=== PATIENT | male | born 1950 | race Caucasian/White ===

== ENCOUNTER 2023-02-23 07:57 | Outpatient (CLI) | payer OTHER, MEDICARE, SELFPAY ==
--- NOTE | 2023-02-23 07:15 | DI.RAD_ITS ---
Exam(s) XR PAIN CLINIC LUMBAR SP 2V EXAM: XR PAIN CLINIC LUMBAR SP 2V CLINICAL HISTORY: Dx: Lumbar Radiculopathy. TECHNIQUE: Fluoroscopy was provided for the referring physician for guidance with performing pain cl inic injection procedure. COMPARISON: No exams were available for comparison FINDINGS: Please see procedure note for details. Fluoro time: 12.3 seconds RADIATION DOSE DELIVERED: Kar=2.89 mGy
[2023-02-23 08:10] VITALS: BP 153/84; PULSE 59; RESP 20; TEMP 36.4; O2SAT 97
[2023-02-23 08:40] VITALS: BP 165/83; PULSE 66; RESP 19; O2SAT 96
--- NOTE | 2023-02-23 08:44 | PDOC.PAIN_ITS ---
Date of service: 02/23/23 Time of Service: 08:44 Pain Managment Procedure Note Procedure Note Procedure Note: PROCEDURE NOTE LUMBAR EPIDURAL STEROID INJECTION Date of Service: February 23, 2023 Patient:Timothy Casillas? Provider: Gil Rouse DO, MPH Timothy Ortiz has been referred to the [facility] for a lumbar epidural steroid injection. Pre-operative diagnosis: Lumbosacral Radiculopathy Post-operative diagnosis: Same Pre-Procedure Pain: VAS= 7/10 Comments: I previously evaluated him in our clinic. His symptoms have not changed. Timothy was interviewed and the medical record was reviewed.? There were no medical, pharmacologic, radiographic or other structural contraindications to attempting fluoroscopically guided Lumbar epidural steroid injection.? Risks, potential side effects, indications, and potential benefits of the procedure were reviewed with Timothy.? Questions and concerns were addressed.? After it was clear that Timothy was fully informed about the procedure, the printed consent form was signed by the patient and myself.? Timothy was placed in the prone position on the fluoroscopy table and automated blood pressure cuff and pulse oximeter applied. The skin entry point for entering/approaching the epidural space for the lumbar epidural steroid injection was marked. Following thorough chlorhexadine preparation of the skin and draping and 1% lidocaine infiltration of the skin entry point and subcutaneous tissues, an 18 gauge Touhy needle was placed and advanced under fluoroscopic guidance and with loss of resistance technique into the L5-S1 epidural space. Needle tip placement and depth were aided and confirmed by fluoroscopy. There was no paresthesia or return of blood or CSF through the needle. 1 mls of Omnipaque 240 was injected with clear epidural spread confirmed with fluoroscopy. 80 mg of Depo-Medrol was? injected. This was followed by 1 ml of preservative-free normal saline to flush the steroid out of the needle. There was no unusual discomfort expressed by Timothy. The needle was withdrawn without difficulty. (49 mls of Omnipaque was wasted) Timothy was observed and was without hemodynamic, neurologic, or allergic reactions.? Fluoroscopic images were digitally archived. Timothy's vital signs were stable throughout the procedure and were as recorded in nursing records. Follow up plans and appointments were discussed with Timothy. Post procedure instruction was given as documented in nursing records and having met discharge criteria Timothy was discharged from the [facility]. COMMENTS: No apparent complications. Post-procedure pain: VAS= 4/10. Timothy to contact [facility] as needed. If at least 50% improvement in pain and/or function for at least 3 months is achieved, this procedure can be repeated. I personally performed this entire procedure. GIL ROUSE DO, MPH ABPMR-subspecialty board certification in Pain Medicine [facility]
[2023-02-23] MEDS: methylPREDNISolone ACETATE 80 MG/ML VIAL IJ (08:45)
[2023-02-23] MEDS: Omnipaque 240 MG/ML 50 ML BTL IJ (08:46)
== END 2023-02-23 07:58 | disposition home or self-care (01) ==
PROVIDERS: Visit Provider Preventive Medicine Occupational Medicine
DX: M54.17 Radiculopathy, lumbosacral region (principal)
CPT/HCPCS: 62323; 72100; J1040; Q9967

== ENCOUNTER 2023-08-06 10:29 | Outpatient (CLI) | payer OTHER, SELFPAY ==
--- NOTE | 2023-08-06 06:00 | DI.RAD_ITS ---
Exam(s) XR PAIN CLINIC LUMBAR SP 2V EXAM: XR PAIN CLINIC LUMBAR SP 2V CLINICAL HISTORY: DX: Lumbar Radiculopathy TECHNIQUE: 2D and realtime digital imaging was performed. CONTRAST MATERIAL: Refer to procedure report. COMPARISON: No exams were available for comparison FINDINGS: Fluoroscopy was provided for Dr. Rouse during the performance of a lumbosacral pain management. Plea se refer to the procedure report for complete details. Ka,r=4.1 mGy IMPRESSION:
[2023-08-06 11:00] VITALS: BP 138/86; PULSE 64; RESP 16; TEMP 36.8; O2SAT 94
[2023-08-06 11:27] VITALS: BP 153/95; PULSE 63; RESP 12; O2SAT 96
[2023-08-06] MEDS: Omnipaque 240 MG/ML 50 ML BTL IJ (11:28)
[2023-08-06] MEDS: Epidural Tray 1 EACH MC (11:29)
[2023-08-06] MEDS: methylPREDNISolone ACETATE 80 MG/ML VIAL IJ (11:29)
--- NOTE | 2023-08-06 12:16 | PDOC.PAIN ---
Date of service: 08/06/23 Time of Service: 12:16 Pain Managment Procedure Note Procedure Note Procedure Note: PROCEDURE NOTE LUMBAR EPIDURAL STEROID INJECTION Date of Service: August 06, 2023 Patient:?Timothy Ortiz? Provider: Gil Rouse DO, MPH Timothy Ortiz has been referred to the [facility] for a lumbar epidural steroid injection. Pre-operative diagnosis: Lumbosacral Radiculopathy Post-operative diagnosis: Same Pre-Procedure Pain: VAS= 5/10 Comments: He acheived >50% pain relief for >3 months with the last LESI. He was also much more active with family and friends. Timothy was interviewed and the medical record was reviewed.? There were no medical, pharmacologic, radiographic or other structural contraindications to attempting fluoroscopically guided Lumbar epidural steroid injection.? Risks, potential side effects, indications, and potential benefits of the procedure were reviewed with Timothy.? Questions and concerns were addressed.? After it was clear that Timothy was fully informed about the procedure, the printed consent form was signed by the patient and myself.? Timothy was placed in the prone position on the fluoroscopy table and automated blood pressure cuff and pulse oximeter applied. The skin entry point for entering/approaching the epidural space for the lumbar epidural steroid injection was marked. Following thorough chlorhexadine preparation of the skin and draping and 1% lidocaine infiltration of the skin entry point and subcutaneous tissues, an 18 gauge Touhy needle was placed and advanced under fluoroscopic guidance and with loss of resistance technique into the L5-S1 epidural space. Needle tip placement and depth were aided and confirmed by fluoroscopy. There was no paresthesia or return of blood or CSF through the needle. 1 mls of Omnipaque 240 was injected with clear epidural spread confirmed with fluoroscopy. 80 mg of Depo-Medrol was? injected. This was followed by 1 ml of preservative-free normal saline to flush the steroid out of the needle. There was no unusual discomfort expressed by Timothy. The needle was withdrawn without difficulty. (49 mls of Omnipaque was wasted) Timothy was observed and was without hemodynamic, neurologic, or allergic reactions.? Fluoroscopic images were digitally archived. Timothy's vital signs were stable throughout the procedure and were as recorded in nursing records. Follow up plans and appointments were discussed with Timothy. Post procedure instruction was given as documented in nursing records and having met discharge criteria Timothy was discharged from the [facility]. COMMENTS: No apparent complications. Post-procedure pain: VAS= 5/10. Timothy to contact [facility] as needed. If at least 50% improvement in pain and/or function for at least 3 months is achieved, this procedure can be repeated. I personally performed this entire procedure. GIL ROUSE DO, MPH ABPMR-subspecialty board certification in Pain Medicine [facility]
== END 2023-08-06 10:30 | disposition home or self-care (01) ==
LOC: PC 10:30
PROVIDERS: Visit Provider Preventive Medicine Occupational Medicine
DX: M54.17 Radiculopathy, lumbosacral region (principal)
CPT/HCPCS: 00123; 62323; 72100; J1040; Q9967

== ENCOUNTER 2024-09-08 07:49 | Outpatient (CLI) | payer OTHER, SELFPAY ==
[2024-09-08] VITALS (8 sets, daily range): BP systolic 153–196; BP diastolic 86–106; PULSE 55–61; RESP 16–23; TEMP 36.5; O2SAT 96–98
[2024-09-08] MEDS: Omnipaque 240 MG/ML 50 ML BTL IJ (09:19)
[2024-09-08] MEDS: methylPREDNISolone ACETATE 80 MG/ML VIAL IJ (09:19)
--- NOTE | 2024-09-08 09:20 | DI.RAD_ITS ---
Exam(s) XR PAIN CLINIC LUMBAR SP 2V EXAM: XR PAIN CLINIC LUMBAR SP 2V CLINICAL HISTORY: DX: Lumbar Radiculopathy. TECHNIQUE: Fluoroscopy was provided for the referring physician for guidance with performing pain cl inic injection procedure. COMPARISON: No exams were available for comparison FINDINGS: Please see procedure note for details. Fluoro time: 23.7 seconds RADIATION DOSE DELIVERED: Ka,r=8.59 mGy
--- NOTE | 2024-09-08 09:29 | PDOC.PAIN_ITS ---
Date of service: 09/08/24 Time of Service: 09:29 Pain Managment Procedure Note Procedure Note Procedure Note: PROCEDURE NOTE CAUDAL EPIDURAL STEROID INJECTION Date of Service: September 08, 2024 Patient:? Timothy Ortiz? Provider:? Gil Rouse DO, MPH Timothy Ortiz has been referred to the [facility] for caudal epidural steroid injection.? Pre-operative diagnosis: Lumbosacral Radiculopathy, ICD-10 M54.17 Post-operative diagnosis: Same Pre-Procedure Pain: VAS= 4/10. COMMENTS: He is having left L5/S1 radicular pain Kaylawas interviewed and the medical record was reviewed.? There were no medical, pharmacologic, radiographic or other structural contraindications to attempting fluoroscopically guided epidural steroid injection.? Risks and expected side effects as well as potential benefit of the procedure were reviewed with Kayla, and the patient's voiced concerns were addressed.? The printed consent form was signed.? Standard time-out procedure was performed. Kayla was placed in the prone position on the fluoroscopy table and automated blood pressure cuff and pulse oximeter applied.? The skin entry point for entering/approaching the epidural space by a caudal approach through the sacral hiatus ed identified with surgical skin marking.? Following thorough chlorhexidine preparation of the skin and draping and 1% lidocaine infiltration of the skin entry point and subcutaneous tissues, a 17 gauge Touhy needle was placed under fluoroscopic guidance? into the epidural space. Needle tip placement and depth were aided and confirmed by fluoroscopy in the lateral and AP position. There was no paresthesia or return of blood or CSF through the needle. 1 cc of Omnipaque 240 was injected with clear epidural spread confirmed with fluoroscopy. An Arrow 19G radio-opaque epidural catheter was advanced into the epidural space to the L5-S1 level and 2 cc of Omnipaque 240 was injected with clear epidural spread. 80 mg of Depo-Medrol was? injected. There was no unusual discomfort expressed by Timothy. The needle and catheter were then flushed with 1 cc of 1% Lidocaine and they were removed together without difficulty (49 cc of Omnipaque was wasted). Timothy was observed and was without hemodynamic, neurologic, or allergic reactions.? Fluoroscopic images were digitally archived. Timothy's vital signs were stable throughout the procedure and were as recorded in the docflowsheet by the nursing staff.? If given, dosages of intravenous drugs for anxiolysis and analgesia were documented in MAR. Follow up plans and appointments were discussed with Timothy.? Post procedure instruction was given as documented in nursing documentation and having met discharge criteria, Timothy was [facility] from the [facility]. ? COMMENTS: No apparent complications.? Post-procedure pain: VAS= 0/10. If the patient receives at least 50% improvement in pain and/or function for at least 3 months, this procedure can be repeated. HIS BLOOD PRESSURE WAS A BIT ELEVATED THROUGHOUT THE PROCEDURE. HE WAS ASYMPTOMATIC AND WAS ASKED TO TALK TO HIS PCP ABOUT THIS ISSUE. I personally completed the entire procedure. GIL ROUSE DO, MPH ABPM[employer]R - Subspecialty board certification in Pain Medicine [facility] Coding Conscious Sedation used for procedure: No CPT Codes: Inj Spine L/S w/Imaging - 57050 ([id number] ~G) Additional Codes: Date of Service (00985) Date of service: 09/08/24
== END 2024-09-08 07:50 | disposition home or self-care (01) ==
LOC: PC 07:49
PROVIDERS: Visit Provider Preventive Medicine Occupational Medicine
DX: M54.17 Radiculopathy, lumbosacral region (principal)
CPT/HCPCS: 62323; 72100; J1010; Q9967

== ENCOUNTER 2025-02-08 10:43 | Outpatient (CLI) | payer MEDICARE, BC, SELFPAY ==
--- NOTE | 2025-02-08 06:00 | DI.RAD_ITS ---
Exam(s) XR PAIN CLINIC LUMBAR SP 2V EXAM: XR PAIN CLINIC LUMBAR SP 2V CLINICAL HISTORY: Dx: Lumbar Radiculopathy. TECHNIQUE: Fluoroscopy was provided for the referring physician for guidance with performing pain clinic injection procedure. COMPARISON: No exams were available for comparison FINDINGS: Please see procedure note for details. Fluoro time: 18.2 seconds RADIATION DOSE DELIVERED: Ka,r=8.3 mGy
[2025-02-08 10:54] VITALS: BP 150/92; PULSE 55; RESP 18; TEMP 36.3; O2SAT 97
[2025-02-08] MEDS: Omnipaque 240 MG/ML 50 ML BTL IJ (11:32)
[2025-02-08] MEDS: Nerve Block Tray 1 EACH MC (11:32)
[2025-02-08] MEDS: methylPREDNISolone ACETATE 80 MG/ML VIAL IJ (11:33)
--- NOTE | 2025-02-08 13:33 | PDOC.PAIN_ITS ---
Date of service: 02/08/25 Time of Service: 11:00 Pain Managment Procedure Note Procedure Note Procedure Note: PROCEDURE NOTE CAUDAL EPIDURAL STEROID INJECTION Date of Service: February 08, 2025 Patient:? Timothy Ortiz? Provider:? Gil Rouse DO, MPH Timothy Ortiz has been referred to the [facility] for caudal epidural steroid injection.? Pre-operative diagnosis: Lumbosacral Radiculopathy, ICD-10 M54.17 Post-operative diagnosis: Same Pre-Procedure Pain: VAS= 3/10. COMMENTS: He last had this procedure completed in August 2024 and had >3 mon ths of >50% pain relief. Kaylawas interviewed and the medical record was reviewed.? There were no medical, pharmacologic, radiographic or other structural contraindications to attempting fluoroscopically guided epidural steroid injection.? Risks and expected side effects as well as potential benefit of the procedure were reviewed with Kayla, and the patient's voiced concerns were addressed.? The printed consent form was signed.? Standard time-out procedure was performed. Kayla was placed in the prone position on the fluoroscopy table and automated blood pressure cuff and pulse oximeter applied.? The skin entry point for entering/approaching the epidural space by a caudal approach through the sacral hiatus ed identified with surgical skin marking.? Following thorough chlorhexidine preparation of the skin and draping and 1% lidocaine infiltration of the skin entry point and subcutaneous tissues, a 17 gauge Touhy needle was placed under fluoroscopic guidance? into the epidural space. Needle tip placement and depth were aided and confirmed by fluoroscopy in the lateral and AP position. There was no paresthesia or return of blood or CSF through the needle. 1 cc of Omnipaque 240 was injected with clear epidural spread confirmed with fluoroscopy. An Arrow 19G radio-opaque epidural catheter was advanced into the epidural space to the L5-S1 level and 2 cc of Omnipaque 240 was injected with clear epidural spread. 80 mg of Depo-Medrol was? injected. There was no unusual discomfort expressed by Timothy. The needle and catheter were then flushed with 1 cc of 1% Lidocaine and they were removed together without difficulty (49 cc of Omnipaque was wasted). Timothy was observed and was without hemodynamic, neurologic, or allergic reactions.? Fluoroscopic images were digitally archived. Timothy's vital signs were stable throughout the procedure and were as recorded in the docflowsheet by the nursing staff.? If given, dosages of intravenous drugs for anxiolysis and analgesia were documented in MAR. Follow up plans and appointments were discussed with Timothy.? Post procedure instruction was given as documented in nursing documentation and having met discharge criteria, Timothy was [facility] from the [facility]. ? COMMENTS: No apparent complications.? Post-procedure pain: VAS= 0/10. If the patient receives at least 50% improvement in pain and/or function for at least 3 months, this procedure can be repeated. I personally completed the entire procedure. GIL ROUSE DO, MPH ABPM[employer]R - Subspecialty board certification in Pain Medicine [facility] Coding Conscious Sedation used for procedure: No CPT Codes: Inj Spine L/S w/Imaging - [id number] ([id number] ~G) Additional Codes: Date of Service (18626) Date of service: 02/08/25 Diagnoses: lumbar radiculitis
== END 2025-02-08 10:44 | disposition home or self-care (01) ==
LOC: PC 10:44
PROVIDERS: PCP Physician Assistant; Visit Provider Preventive Medicine Occupational Medicine
DX: M54.50 Low back pain, unspecified (principal); M54.17 Radiculopathy, lumbosacral region
CPT/HCPCS: 62323; 72100; J1010; Q9967